=== PATIENT | female | born 1980 | race Caucasian/White ===

== ENCOUNTER → 2016-08-07 | Outpatient (CLI) | payer MEDICAID ==
[~2016-08-07] MED LIST: AEROCHAMBER1 DEV IH; BENZONATATE100 MG PO; DICLOFENAC SODI75 M3 PO; MINOCYCLINE HY100 MG PO; PERCOCET 5/3251 EACH PO; PRENATAL VITAMI1 TAB PO; PROVENTIL0.09 MG/AC IH; TYLENOL ES500 MG PO
== END ==
LOC: LAB 14:10
DX: N39.0 Urinary tract infection, site not specified (principal)

== ENCOUNTER → 2016-11-21 | Outpatient (CLI) | payer MEDICAID ==
[2016-11-21 14:26] LABS: LYMPH # 1.3 K/mm3 (0.7-4.5); LYMPH % 31.6 % (10-50.0)
[2016-11-21 14:46] LABS: BUN 10 mg/dL (7-18)
[2016-11-21 14:48] LABS: GFR (ESTIMATED) 82 ML/MIN (59-)
[2016-11-23 08:55] LABS: Folate (Folic Acid) 5.8 ng/mL (>3.0); Thyroid Peroxidase (TPO) Ab 9 IU/mL (0-34); Vitamin B12 508 pg/mL (211-946); Vitamin D, 25-Hydroxy 34.7 ng/mL (30.0-100.0)
[2016-11-23 12:41] LABS: Thyroglobulin Antibody <1.0 IU/mL (0.0-0.9)
== END ==
LOC: LAB 13:56
PROVIDERS: Physician Assistant
DX: R53.82 Chronic fatigue, unspecified (principal); R63.5 Abnormal weight gain

== ENCOUNTER 2017-03-17 12:13 | Emergency (ER) | payer MEDICAID ==
[~2017-03-17] VITALS: Ht 160 cm; Wt 61.2 kg
--- NOTE | 2017-03-17 13:30 | Urgent Treatment Center Report ---
History of Present Issue Date/Time Seen by Provider 03/17/17 1301 Visit Reason Pt arrived:Walked Presenting Problem:PT C/O HAYES THAT HAS CONTINUOUSLY WORSENED OVER THE LAST WEEK Location if Accident: Onset of symptoms date/time:/ or onset unknown for:MEDICAL HX UNKNOWN Have you (or family members/close friends) recently traveled outside the [place]? N If Yes, where/when: Have you had exposure to infectious disease within the past month? TB? Other? Specify: Patient state that has a history of migraine headaches States that she has had one for the last week that has continued to get worse State that she is out of her headache medication and not been able to get to her doctor to get it filled State that it feels like her other migraines however she usually has her medication to take to help get rid of it ALLERGIES Coded Allergies: No Known Allergies (05/29/16) Home Medications Active Scripts Oxycodone 5MG/[id number] (Oxycodone-Acetaminophen 5-325) 1-2 TAB PO Q4HP PRN MODERATE TO SEVERE PAIN #30 TAB Prov: 05/30/16 History Medical History General CAD? No Angina: No DC: No Hypertension? No Hyperlipidemia? No CHF? No DVT? No PE? No COPD? No Asthma? No Anemia? No GERD? No Gastric ulcers? No GI Bleed? No Hernia? No Thyroid Problems? No Hypothyroidism? No CVA? No Seizures? No Diabetes? No Insulin Dependent: No Insulin Pump: No Home FSBS? No Renal Insuffiency? No UTI? Yes Stones? No BPH? No GB Disease: Yes Nephritic Syndrome? No Asplenia? No Hepatitis? No Sickle Cell Disease? No Arthritis? No Migraines? No Cataracts? No Glaucoma? No MRSA? No HIV? No TB? No Anxiety? Yes Depression? No Cancer? No More? No Immunization HX DT/Tetanus 5-10 Years Ago Flu Refused Pneumonia Refuses Surgical Hx Previous Surgery?Y GALLBLADDER Oral Surgery URETER STENT PLACEMENT Tubal Ligation KNEE SURGERY Family History Family HX Diabetes Yes CAD No Hypertension Yes Hyperlipidemia No Cancer No TB No Social History Smoking Hx Smoker: Never Smoker Tobacco: No Alcohol Alcohol: No Review of Systems All Other Systems Reviewed and Negative Psychiatric/Neurological headache Physical Exam Vital Signs Vital Signs Date Time Temp Pulse Resp B/P Pulse O2 O2 Flow FiO2 Ox Delivery Rate 03/17 1249 18 03/17 1224 99.1 64 20 115/82 99 General Appearance normal appearance, WD/WN, no apparent distress Respiratory Status Yes: trachea midline, chest symmetrical, non tender chest. No: respiratory distress. 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 No Results/Orders Current Medication Orders Sig/Garrett Start time Last Medication Dose Route Stop Time Status Admin Ketorolac 60 MG ONCE ONE 03/17 1245 DC 03/17 Tromethamine IM 03/17 1246 1249 Ketorolac 0 .STK-MED ONE 03/17 1244 DC Tromethamine .ROUTE Progress [facility] Progress Notes Comment Patient state that medication helped some with pain Patient advised to go home and continue to sleep off migraine Departure Departure Time of Disposition 1323 Disposition DC Home or Self Care(routine) Clinical Impression Primary Impression: Migraine headache Qualifiers: Migraine type: unspecified Status migrainosus presence: with status migrainosus Intractability: not intractable Qualified Code: G43.901 - Migraine, unspecified, not intractable, with status migrainosus Condition STABLE Referrals HÉCTOR RUSSO (Family): [facility] Patient Instructions DI for Migraine, Migraine -- Adult Additional Instructions Follow up with family doctor to have your migraine medication filled and take accordingly Go home lay down and try to sleep of the rest of your migraine Return if needed If at anytime your symptoms change or your pain becomes the worse you have ever felt go straight to the ER Discharge Counseling Counseled pt/family regarding diagnosis, medications/RX, home care, follow up needs at [phone]
--- NOTE | 2017-03-17 13:30 | Urgent Treatment Center Report ---
History of Present Issue Date/Time Seen by Provider 03/17/17 1301 Visit Reason Pt arrived:Walked Presenting Problem:PT C/O HAYES THAT HAS CONTINUOUSLY WORSENED OVER THE LAST WEEK Location if Accident: Onset of symptoms date/time:/ or onset unknown for:MEDICAL HX UNKNOWN Have you (or family members/close friends) recently traveled outside the [place]? N If Yes, where/when: Have you had exposure to infectious disease within the past month? TB? Other? Specify: Patient state that has a history of migraine headaches States that she has had one for the last week that has continued to get worse State that she is out of her headache medication and not been able to get to her doctor to get it filled State that it feels like her other migraines however she usually has her medication to take to help get rid of it ALLERGIES Coded Allergies: No Known Allergies (05/29/16) Home Medications Active Scripts Oxycodone 5MG/[id number] (Oxycodone-Acetaminophen 5-325) 1-2 TAB PO Q4HP PRN MODERATE TO SEVERE PAIN #30 TAB Prov: 05/30/16 History Medical History General CAD? No Angina: No [place]: No Hypertension? No Hyperlipidemia? No CHF? No DVT? No PE? No COPD? No Asthma? No Anemia? No GERD? No Gastric ulcers? No GI Bleed? No Hernia? No Thyroid Problems? No Hypothyroidism? No CVA? No Seizures? No Diabetes? No Insulin Dependent: No Insulin Pump: No Home FSBS? No Renal Insuffiency? No UTI? Yes Stones? No BPH? No GB Disease: Yes Nephritic Syndrome? No Asplenia? No Hepatitis? No Sickle Cell Disease? No Arthritis? No Migraines? No Cataracts? No Glaucoma? No MRSA? No HIV? No TB? No Anxiety? Yes Depression? No Cancer? No More? No Immunization HX DT/Tetanus 5-10 Years Ago Flu Refused Pneumonia Refuses Surgical Hx Previous Surgery?Y GALLBLADDER Oral Surgery URETER STENT PLACEMENT Tubal Ligation KNEE SURGERY Family History Family HX Diabetes Yes CAD No Hypertension Yes Hyperlipidemia No Cancer No TB No Social History Smoking Hx Smoker: Never Smoker Tobacco: No Alcohol Alcohol: No Review of Systems All Other Systems Reviewed and Negative Psychiatric/Neurological headache Physical Exam Vital Signs Vital Signs Date Time Temp Pulse Resp B/P Pulse O2 O2 Flow FiO2 Ox Delivery Rate 03/17 1249 18 03/17 1224 99.1 64 20 115/82 99 General Appearance normal appearance, WD/WN, no apparent distress Respiratory Status Yes: trachea midline, chest symmetrical, non tender chest. No: respiratory distress. 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 No Results/Orders Current Medication Orders Sig/Garrett Start time Last Medication Dose Route Stop Time Status Admin Ketorolac 60 MG ONCE ONE 03/17 1245 DC 03/17 Tromethamine IM 03/17 1246 1249 Ketorolac 0 .STK-MED ONE 03/17 1244 DC Tromethamine .ROUTE Progress [facility] Progress Notes Comment Patient state that medication helped some with pain Patient advised to go home and continue to sleep off migraine Departure Departure Time of Disposition 1323 Disposition DC Home or Self Care(routine) Clinical Impression Primary Impression: Migraine headache Qualifiers: Migraine type: unspecified Status migrainosus presence: with status migrainosus Intractability: not intractable Qualified Code: G43.901 - Migraine, unspecified, not intractable, with status migrainosus Condition STABLE Referrals HÉCTOR RUSSO (Family): [facility] Patient Instructions DI for Migraine, Migraine -- Adult Additional Instructions Follow up with family doctor to have your migraine medication filled and take accordingly Go home lay down and try to sleep of the rest of your migraine Return if needed If at anytime your symptoms change or your pain becomes the worse you have ever felt go straight to the ER Discharge Counseling Counseled pt/family regarding diagnosis, medications/RX, home care, [place] at [phone]
[2017-03-17 13:35] VITALS: BP 115/82
== END 2017-03-17 13:40 | disposition home or self-care (01) ==
LOC: UTC 12:13
DX: G43.909 Migraine, unspecified, not intractable, without status migrainosus (principal)

== ENCOUNTER → 2017-05-14 | Outpatient (CLI) | payer MEDICAID ==
--- NOTE | 2017-05-21 14:25 | RADIOLOGY REPORT PS360 ---
DIG MAMM-SCREEN IMPLANT W/CAD Flavio TECHNIQUE . ORDERING PHYSICIAN : Kaushal Vázquez MD PATIENT AGE: 36 years GENDER: Female COMPARISON: Previous mammograms: April 2015 bilateral mammogram. INDICATION: Routine screening bilateral breast implants August 2015 Family history: Sister with breast cancer age 38 TECHNIQUE: Flavio TECHNIQUE CC and MLO images were obtained of these include images of breast overlying implant and those with implant. R2 CAD reviewed. FINDINGS: Bilateral breast implants are now evident & decrease sensitivity. Scattered moderate fibroglandular elements throughout the breast otherwise noted.. RIGHT BREAST: Breast implants now evident. Small focal area of density just lateral to the nipple in the breast tissue is seen on cc view overlying the implant,-similar to an area seen previous 2015 study and I believe overall stable. Area density medial right breast on one of the cc view dissipates on the with implant cc view and I believe may reflects an asymmetric glandular tissue. I have I would directed physical exam to the medial right breast to correlate . LEFT BREAST: Breast implants No new findings of concern. Scattered areas of the density appear similar to prior study. Follow-up in one year adequate IMPRESSION: ......... Bilateral breast implants has been placed since prior study. These inherently decreases to the mammography.Flavio technique utilized. . No persistent new areas of concern. Areas on one view dissipate on another. (An area at the medial right breast seen on cc view seems to dissipate on other views but would suggest correlation with physical exam here at medial right breas to & to further exclude significant palpable asymmetry here.). Recommend and would encourage followed bilateral mammogram in one year. BI-RADS CATEGORY: 2_Benign RECOMMENDED FOLLOWUP: 12M 12 MONTH FOLLOW-UP (A letter has been sent to the patient regarding results of the study.)
== END ==
LOC: RAD 13:28
DX: Z12.31 Encounter for screening mammogram for malignant neoplasm of breast (principal)
CPT/HCPCS: G0202

== ENCOUNTER → 2017-05-18 | Outpatient (CLI) | payer MEDICAID ==
--- NOTE | 2017-05-18 16:36 | RADIOLOGY REPORT PS360 ---
CT HEAD W/O CONTRAST HISTORY: PERSISTENT HEADACHES ORDERING PHYSICIAN: MEME LAROSE PATIENT AGE: 36 years COMPARISON: None TECHNIQUE: Axial images obtained without contrast. Brain and bone windows reviewed. FINDINGS: No midline shift, mass effect, intracranial hemorrhage, hydrocephalus, or extra-axial fluid collection is evident. The calvarium has an unremarkable appearance. No mastoid effusion. The visualized paranasal sinuses are unremarkable. IMPRESSION: Negative CT head without contrast. No acute finding.
== END ==
LOC: RAD 13:20
DX: G44.52 New daily persistent headache (NDPH) (principal)